=== PATIENT | female | born 2005 | race Caucasian/White ===

== ENCOUNTER 2024-03-04 20:45 | Emergency (ER) | payer OTHER ==
[~2024-03-04] VITALS: Ht 152.4 cm; Wt 64.0 kg
[2024-03-04 21:00] VITALS: O2SAT 99
[2024-03-04] MEDS ORDERED: IBUP-2029 MT (21:41)
[2024-03-04] MEDS ORDERED: METH-653 MT (21:41)
[2024-03-04 22:02] VITALS: BP 111/75; PULSE 60; RESP 19; TEMP 98.6
== END 2024-03-04 22:04 | disposition home or self-care (01) ==
LOC: ER 20:45
DX: S43.402A Unspecified sprain of left shoulder joint, initial encounter (principal); X58.XXXA Exposure to other specified factors, initial encounter; Y93.89 Activity, other specified; Y92.89 Other specified places as the place of occurrence of the external cause; Y99.8 Other external cause status
CPT/HCPCS: 81025; 99282; 99283